=== PATIENT | female | born 1990 | race Caucasian/White ===

== ENCOUNTER 2017-10-13 06:10 | Inpatient (IN) | payer BC, SELFPAY ==
[~2017-10-13] VITALS: Ht 152.4 cm; Wt 57.6 kg
[2017-10-13] MEDS ORDERED: LR 1,000 ML IV SCH (06:33)
[2017-10-13] MEDS ORDERED: MISOPROSTOL 100 MCG TABLET (CYTOTEC) VG ONE (06:45)
[2017-10-13] MEDS ORDERED: chlorproMAZINE HCL 50 MG/ 2 ML AMP IM SCH (07:00)
[2017-10-13 08:59] LABS: BASOPHILS # (AUTO) 0.2 K/uL (0.0-0.2); BASOPHILS % (AUTO) 2.2 % (0.0-2.0); EOSINOPHILS # (AUTO) 0.8 K/uL (0.0-0.4); EOSINOPHILS % (AUTO) 11.3 % (0.0-4.0); HEMATOCRIT 34.2 % (36-48); HEMOGLOBIN 11.7 g/dL (12.0-16.0); LYMPHOCYTES # (AUTO) 2.6 K/uL (1.0-5.5); LYMPHOCYTES % (AUTO) 35.2 % (20.5-51.5); MEAN CORPUSCULAR HEMOGLOBIN 29 pg (27-31); MEAN CORPUSCULAR HGB CONC 34 % (32-36); MEAN CORPUSCULAR VOLUME 84 fL (79.0-98.0); MONOCYTES # (AUTO) 0.5 K/uL (0.0-1.0); MONOCYTES % (AUTO) 7.4 % (1.7-9.3); NEUTROPHILS # (AUTO) 3.2 K/uL (1.8-7.7); NEUTROPHILS % (AUTO) 43.9 % (40.0-70.0); PLATELET COUNT (AUTO) 300 K/uL (130-430); RED BLOOD CELL COUNT(AUTO) 4.07 MIL/uL (4.2-6.2); RED CELL DISTRIBUTION WIDTH 12.1 % (9.0-15.0); WHITE BLOOD COUNT (AUTO) 7.4 K/uL (4.8-10.8)
[2017-10-13] MEDS ORDERED: MISOPROSTOL 100 MCG TABLET (CYTOTEC) VG SCH (11:00)
[2017-10-13] MEDS: HYDROmorphone 2 MG/ML VIAL IVP PRN ×2 (15:17→19:54)
[2017-10-13] MEDS: MISOPROSTOL 100 MCG TABLET (CYTOTEC) VG SCH ×2 (16:04→20:43)
[2017-10-13] MEDS ORDERED: ONDANSETRON HCL 4 MG/2 ML VIAL ONE (20:45)
[2017-10-14] MEDS: HYDROmorphone 2 MG/ML VIAL IVP PRN ×4 (00:20→12:56)
[2017-10-14] MEDS: MISOPROSTOL 100 MCG TABLET (CYTOTEC) VG SCH ×3 (00:20→08:38)
[2017-10-14] MEDS: ONDANSETRON HCL 4 MG/2 ML VIAL IVP PRN ×2 (03:36→12:49)
[2017-10-14 08:19] LABS: HEMOGLOBIN 8.1 g/dL (12.0-16.0)
[2017-10-14] MEDS ORDERED: OXYTOCIN/0.9 % SODIUM CHLORIDE 1,000 ML IV SCH (12:30)
[2017-10-14] MEDS ORDERED: MISOPROSTOL 100 MCG TABLET (CYTOTEC) PO ONE (12:30)
[2017-10-14] MEDS ORDERED: NALOXONE HCL 0.4 MG/ML AMP (NARCAN) IVP PRN ×2 (17:30)
[2017-10-14] MEDS ORDERED: KETOROLAC TROMETHAMINE 30 MG VIAL IVP PRN (17:30)
[2017-10-14] MEDS ORDERED: NALBUPHINE HCL 10 MG/ML AMP IVP PRN (17:30)
[2017-10-14] MEDS ORDERED: DIPHENHYDRAMINE INJ 50 MG/ML VIAL IVP PRN (17:30)
[2017-10-14] MEDS ORDERED: ONDANSETRON HCL 4 MG/2 ML VIAL IVP PRN ×2 (17:30)
[2017-10-14] MEDS ORDERED: fentaNYL CITRATE/PF 100 MCG/2 ML AMP IVP PRN ×2 (17:30)
[2017-10-14] MEDS ORDERED: MORPHINE SULFATE 10MG/10ML PF AMP SP SCH (17:30)
[2017-10-14] MEDS ORDERED: KETOROLAC TROMETHAMINE 60 MG/2 ML VIAL IM PRN (17:30)
[2017-10-14 18:35] VITALS: BP_SYST 102
[2017-10-14] MEDS ORDERED: CEFAZOLIN 2 GM IVPB PREMIX 50 ML IV ONE (18:40)
[2017-10-14] MEDS ORDERED: fentaNYL CITRATE/PF 100 MCG/2 ML AMP ONE (18:40)
[2017-10-14] MEDS ORDERED: LR 1,000 ML IV.SOLN IV ONE (18:40)
[2017-10-14] MEDS ORDERED: NS IRRIG SOLN 1000 ML IR ONE (18:40)
[2017-10-14] MEDS ORDERED: MIDAZOLAM HCL 5 MG/ML VIAL (VERSED) IV ONE (18:40)
[2017-10-14] MEDS ORDERED: SEVOFLURANE 15 MIN GAS INH ONE (18:40)
[2017-10-14] MEDS ORDERED: PROPOFOL 200MG/ 20ML VIAL (DIPRIVAN) IV ONE (18:40)
== END 2017-10-14 20:35 | disposition home or self-care (01) | DRG 767 ==
LOC: SPU 06:10
PROVIDERS: ADMIT Specialist; ATTEND Specialist
PROC: 10D17Z9 Manual Extraction of Products of Conception, Retained, Via Natural or Artificial Opening (ICD-10-PCS; principal; 2017-10-14 17:45)
DX: O36.4XX0 Maternal care for intrauterine death, not applicable or unspecified (principal); Z37.1 Single stillbirth; Z3A.15 15 weeks gestation of pregnancy; O99.012 Anemia complicating pregnancy, second trimester; D64.9 Anemia, unspecified; Z98.891 History of uterine scar from previous surgery
CPT/HCPCS: 36415; 76805-TC; 85018-TC; 85025; 86592; 86886; 86900; 86901; 88305; 88309; J0690; J1170; J2250; J2405; J2590; J2704; J3010; J3230; J7120

== ENCOUNTER 2018-06-29 11:09 | Observation (INO) | payer BC ==
[~2018-06-29] VITALS: Ht 152.4 cm; Wt 61.7 kg
[2018-06-29 13:49] LABS: BILIRUBIN,URINE NEGATIVE (NEGATIVE); BLOOD, URINE NEGATIVE (NEGATIVE); CLARITY/URINE CLEAR (CLEAR); COLOR,URINE YELLOW (YELLOW); GLUCOSE,URINE NEGATIVE (NEGATIVE); KETONES,URINE NEGATIVE (NEGATIVE); LEUKOCYTE ESTERASE ,URINE TRACE (NEGATIVE); NITRITE, URINE NEGATIVE (NEGATIVE); PROTEIN URINE NEGATIVE (NEGATIVE); UROBILINOGEN,URINE 0.2 (0.2-1.0)
[2018-06-29 14:15] LABS: BACTERIA,URINE FEW /HPF (None Seen); RBC,URINE 0-3 /HPF (0-3)
[2018-06-29 14:16] LABS: MUCUS,URINE 1+ /LPF (None Seen); YEAST,URINE Few /HPF (None Seen)
== END 2018-06-29 13:01 | disposition home or self-care (01) ==
LOC: SPU 11:09
PROVIDERS: ADMIT Specialist; ATTEND Specialist
DX: O26.893 Other specified pregnancy related conditions, third trimester (principal); M54.5 Low back pain; R10.9 Unspecified abdominal pain; Z3A.30 30 weeks gestation of pregnancy
CPT/HCPCS: 81000; 87086; G0378; 81002-TC

== ENCOUNTER 2018-08-02 13:37 | Observation (INO) | payer BC ==
[~2018-08-02] VITALS: Ht 152.4 cm; Wt 61.7 kg
[2018-08-02] MEDS ORDERED: NA PHOS,M-B/NA PHOS,DI-BA 118 ML (FLEET ENEMA) RC PRN (16:00)
[2018-08-02] MEDS ORDERED: MILK OF MAGNESIA 30 ML UDC PO PRN (16:00)
[2018-08-02] MEDS: SIMETHICONE 80 MG TAB.CHEW PO PRN (16:25)
[2018-08-02] MEDS ORDERED: PROMETHAZINE INJ.Non-Formulary 25 MG/ML AMP IM PRN (17:45)
[2018-08-02] MEDS ORDERED: TERBUTALINE SULFATE 1 MG/ML VIAL SUBCUT ONE (17:45)
[2018-08-02] MEDS ORDERED: MEPERIDINE HCL/PF 50 MG/ML AMP IM PRN (17:45)
[2018-08-02] MEDS ORDERED: TERBUTALINE SULFATE 1 MG/ML VIAL ONE (17:47)
[2018-08-02] MEDS: LR 1,000 ML IV SCH (21:21)
[2018-08-03] MEDS: SIMETHICONE 80 MG TAB.CHEW PO PRN (01:33)
[2018-08-03] MEDS: LR 1,000 ML IV SCH (04:55)
[2018-08-03] MEDS ORDERED: ONDANSETRON HCL 4 MG/2 ML VIAL IVP PRN (09:00)
[2018-08-03] MEDS ORDERED: ONDANSETRON HCL 4 MG/2 ML VIAL ONE (09:06)
== END 2018-08-03 14:00 | disposition home or self-care (01) ==
LOC: SPU 13:37 → INTOOBSV 13:37 → SPU 13:49
PROVIDERS: ADMIT Specialist; ATTEND Specialist
DX: O62.9 Abnormality of forces of labor, unspecified (principal); Z3A.35 35 weeks gestation of pregnancy
CPT/HCPCS: 82962; G0378 ×2; J2175; J2405; J2550; J3105; J7120 ×2; 59899; 81002-TC

== ENCOUNTER 2018-08-07 18:08 | Inpatient (IN) | payer BC ==
[~2018-08-07] VITALS: Ht 152.4 cm; Wt 63.5 kg
[2018-08-07 18:41] LABS: BASOPHILS # (AUTO) 0.1 K/uL (0.0-0.2); BASOPHILS % (AUTO) 1.1 % (0.0-2.0); EOSINOPHILS # (AUTO) 0.2 K/uL (0.0-0.4); EOSINOPHILS % (AUTO) 2.2 % (0.0-4.0); LYMPHOCYTES # (AUTO) 2.3 K/uL (1.0-5.5); LYMPHOCYTES % (AUTO) 27.3 % (20.5-51.5); MEAN CORPUSCULAR HEMOGLOBIN 19 pg (27-31); MEAN CORPUSCULAR HGB CONC 31 % (32-36); MEAN CORPUSCULAR VOLUME 62 fL (79.0-98.0); MONOCYTES # (AUTO) 0.7 K/uL (0.0-1.0); MONOCYTES % (AUTO) 8.6 % (1.7-9.3); NEUTROPHILS # (AUTO) 5.2 K/uL (1.8-7.7); NEUTROPHILS % (AUTO) 60.8 % (40.0-70.0); PLATELET COUNT (AUTO) 460 K/uL (130-430); RED BLOOD CELL COUNT(AUTO) 3.46 MIL/uL (4.2-6.2); WHITE BLOOD COUNT (AUTO) 8.5 K/uL (4.8-10.8)
[2018-08-07 18:45] LABS: HEMATOCRIT 21.6 % (36-48); HEMOGLOBIN 6.6 g/dL (12.0-16.0)
[2018-08-07 18:55] LABS: ALBUMIN 2.5 g/dL (3.4-4.8); CALCIUM 8.9 mg/dL (8.4-11.0); CREATININE 0.62 mg/dL (0.55-1.30); POTASSIUM 3.9 mmol/L (3.5-5.1); TOTAL BILIRUBIN 0.8 mg/dL (0.0-1.0)
[2018-08-07] MEDS ORDERED: LR 1,000 ML IV ONE (20:00)
[2018-08-07] MEDS: D5LR 1,000 ML IV SCH (20:07)
[2018-08-07] MEDS: ONDANSETRON HCL 4 MG/2 ML VIAL IVP PRN (20:08)
[2018-08-08] MEDS: ONDANSETRON HCL 4 MG/2 ML VIAL IVP PRN (08:32)
[2018-08-08] MEDS ORDERED: COMMUNICATION ORDER XX ONE (10:30)
[2018-08-08] MEDS ORDERED: SOD FERRIC GLUC COMPLEX/SUC 125 MG in NS 100 ML IV ONE (11:00)
[2018-08-08] MEDS: D5LR 1,000 ML IV SCH ×2 (11:02→19:53)
[2018-08-08 15:44] LABS: TOTAL IRON BIND. CAPACITY 642 ug/dL (250-450)
[2018-08-08] MEDS ORDERED: EPOETIN ALFA 3,000 UNITS/ML VIAL SUBCUT ONE (17:00)
[2018-08-09] MEDS: TEMAZEPAM 15 MG CAPSULE PO PRN ×2 (00:25→22:25)
[2018-08-09] MEDS ORDERED: MAG-AL HYDROX/SIMETH 30 ML UDC PO PRN (04:15)
[2018-08-09] MEDS ORDERED: MILK OF MAGNESIA 30 ML UDC PO PRN (04:15)
[2018-08-09] MEDS ORDERED: COMMUNICATION ORDER XX ONE (10:45)
[2018-08-09] MEDS ORDERED: EPOETIN ALFA 3,000 UNITS/ML VIAL SUBCUT ONE (10:45)
[2018-08-09] MEDS ORDERED: SOD FERRIC GLUC COMPLEX/SUC 125 MG in NS 100 ML IV ONE (12:00)
[2018-08-09] MEDS: D5LR 1,000 ML IV SCH (16:25)
[2018-08-10] MEDS ORDERED: COMMUNICATION ORDER XX ONE (10:30)
[2018-08-10] MEDS ORDERED: EPOETIN ALFA 3,000 UNITS/ML VIAL SUBCUT ONE (13:00)
[2018-08-10] MEDS ORDERED: SOD FERRIC GLUC COMPLEX/SUC 125 MG in NS 100 ML IV SCH (13:00)
[2018-08-10 15:02] LABS: RED CELL DISTRIBUTION WIDTH 20.6 % (9.0-15.0)
== END 2018-08-10 14:00 | disposition home or self-care (01) | DRG 833 ==
LOC: SPU 18:08 → OBSVTOIN 08-08 13:00
PROVIDERS: ADMIT Specialist; ATTEND Specialist
DX: O99.013 Anemia complicating pregnancy, third trimester (principal); O99.283 Endocrine, nutritional and metabolic diseases complicating pregnancy, third trimester; E86.0 Dehydration; D64.9 Anemia, unspecified; Z3A.36 36 weeks gestation of pregnancy
CPT/HCPCS: 36415; 59025; 80053; 81002-TC; 83540-TC; 83550-TC; 85025; 86886; 86900; 86901; G0378; J0885; J2405; J2916; J7120

== ENCOUNTER 2018-08-16 14:13 | Inpatient (IN) | payer BC ==
[~2018-08-16] VITALS: Ht 152.4 cm; Wt 62.6 kg
[2018-08-16] MEDS ORDERED: TERBUTALINE SULFATE 1 MG/ML VIAL SUBCUT PRN (15:00)
[2018-08-16] MEDS ORDERED: PROMETHAZINE INJ.Non-Formulary 25 MG/ML AMP IVP ONE (15:15)
[2018-08-16] MEDS ORDERED: MEPERIDINE HCL/PF 50 MG/ML AMP IVP ONE (15:15)
[2018-08-16 15:39] LABS: BASOPHILS # (AUTO) 0.1 K/uL (0.0-0.2); BASOPHILS % (AUTO) 0.9 % (0.0-2.0); EOSINOPHILS # (AUTO) 0.1 K/uL (0.0-0.4); EOSINOPHILS % (AUTO) 1.7 % (0.0-4.0); HEMATOCRIT 22.6 % (36-48); LYMPHOCYTES # (AUTO) 1.1 K/uL (1.0-5.5); LYMPHOCYTES % (AUTO) 15.6 % (20.5-51.5); MEAN CORPUSCULAR HEMOGLOBIN 21 pg (27-31); MEAN CORPUSCULAR HGB CONC 31 % (32-36); MEAN CORPUSCULAR VOLUME 68 fL (79.0-98.0); MONOCYTES # (AUTO) 0.4 K/uL (0.0-1.0); MONOCYTES % (AUTO) 5.9 % (1.7-9.3); NEUTROPHILS # (AUTO) 5.4 K/uL (1.8-7.7); NEUTROPHILS % (AUTO) 75.9 % (40.0-70.0); PLATELET COUNT (AUTO) 125 K/uL (130-430); RED BLOOD CELL COUNT(AUTO) 3.34 MIL/uL (4.2-6.2); RED CELL DISTRIBUTION WIDTH 22.2 % (9.0-15.0); WHITE BLOOD COUNT (AUTO) 7.1 K/uL (4.8-10.8)
[2018-08-16] MEDS ORDERED: COMMUNICATION ORDER XX ONE (16:30)
[2018-08-16] MEDS ORDERED: SOD FERRIC GLUC COMPLEX/SUC 125 MG in NS 100 ML IV ONE (17:00)
[2018-08-16] MEDS ORDERED: EPOETIN ALFA 3,000 UNITS/ML VIAL SUBCUT ONE (17:00)
[2018-08-16 17:17] VITALS: BP_SYST 120
[2018-08-16] MEDS: LR 1,000 ML IV SCH (20:55)
[2018-08-16] MEDS ORDERED: TEMAZEPAM 15 MG CAPSULE PO PRN (21:00)
[2018-08-17] MEDS ORDERED: PROMETHAZINE INJ.Non-Formulary 25 MG/ML AMP IVP ONE (00:45)
[2018-08-17] MEDS ORDERED: AMPICILLIN SODIUM 2 GM in NS 100 ML IV ONE (00:45)
[2018-08-17] MEDS ORDERED: MEPERIDINE HCL/PF 50 MG/ML AMP IVP ONE (00:45)
[2018-08-17] MEDS ORDERED: AMPICILLIN SODIUM 2 GM VIAL ONE (01:00)
[2018-08-17] MEDS ORDERED: PROMETHAZINE INJ.Non-Formulary 25 MG/ML AMP ONE (01:01)
[2018-08-17] MEDS ORDERED: MEPERIDINE HCL/PF 50 MG/ML AMP ONE ×2 (01:02→14:53)
[2018-08-17] MEDS: AMPICILLIN SODIUM 1 GM in NS 50 ML IV SCH ×4 (05:05→20:54)
[2018-08-17] MEDS ORDERED: AMPICILLIN SODIUM 1 GM VIAL ONE (05:13)
[2018-08-17] MEDS ORDERED: EPOETIN ALFA 3,000 UNITS/ML VIAL SUBCUT ONE (12:15)
[2018-08-17] MEDS ORDERED: COMMUNICATION ORDER XX ONE (12:30)
[2018-08-17] MEDS ORDERED: NS IV ONE (12:45)
[2018-08-17] MEDS ORDERED: [UNRECOGNIZED DRUG - OTHER] IV ONE (12:45)
[2018-08-17] MEDS ORDERED: MEPERIDINE HCL/PF 50 MG/ML AMP IM ONE (14:45)
[2018-08-17] MEDS: LR 1,000 ML IV SCH ×2 (20:10→20:52)
[2018-08-18] MEDS: AMPICILLIN SODIUM 1 GM in NS 50 ML IV SCH (09:27)
[2018-08-18] MEDS ORDERED: COMMUNICATION ORDER XX ONE (09:45)
[2018-08-18] MEDS ORDERED: EPOETIN ALFA 3,000 UNITS/ML VIAL SUBCUT ONE (12:00)
[2018-08-18] MEDS: SOD FERRIC GLUC COMPLEX/SUC 125 MG in NS 100 ML IV SCH (13:34)
[2018-08-18] MEDS ORDERED: MEPERIDINE HCL/PF 50 MG/ML AMP IVP ONE (17:30)
[2018-08-18] MEDS ORDERED: MEPERIDINE HCL/PF 50 MG/ML AMP IVP PRN (21:45)
[2018-08-19] MEDS: LR 1,000 ML IV SCH ×3 (00:22→20:10)
[2018-08-19] MEDS ORDERED: COMMUNICATION ORDER XX ONE (09:00)
[2018-08-19] MEDS ORDERED: EPOETIN ALFA 3,000 UNITS/ML VIAL SUBCUT ONE (09:00)
[2018-08-19] MEDS: SOD FERRIC GLUC COMPLEX/SUC 125 MG in NS 100 ML IV SCH (12:25)
[2018-08-19 12:41] LABS: BASOPHILS # (AUTO) 0.1 K/uL (0.0-0.2); BASOPHILS % (AUTO) 0.9 % (0.0-2.0); EOSINOPHILS # (AUTO) 0.2 K/uL (0.0-0.4); LYMPHOCYTES # (AUTO) 1.6 K/uL (1.0-5.5); MEAN CORPUSCULAR HEMOGLOBIN 21 pg (27-31); MEAN CORPUSCULAR HGB CONC 30 % (32-36); MEAN CORPUSCULAR VOLUME 70 fL (79.0-98.0); MONOCYTES # (AUTO) 0.6 K/uL (0.0-1.0); MONOCYTES % (AUTO) 7.5 % (1.7-9.3); NEUTROPHILS # (AUTO) 5.3 K/uL (1.8-7.7); NEUTROPHILS % (AUTO) 68.6 % (40.0-70.0); PLATELET COUNT (AUTO) 75 K/uL (130-430); RED BLOOD CELL COUNT(AUTO) 3.29 MIL/uL (4.2-6.2); RED CELL DISTRIBUTION WIDTH 25.2 % (9.0-15.0); WHITE BLOOD COUNT (AUTO) 7.7 K/uL (4.8-10.8)
[2018-08-19] MEDS ORDERED: CEFAZOLIN 2 GM IVPB PREMIX 50 ML IV ONE (21:15)
[2018-08-20] MEDS: LR 1,000 ML IV SCH ×2 (04:00→20:00)
[2018-08-20 09:00] VITALS: BP_SYST 124
[2018-08-20] MEDS ORDERED: MORPHINE SULFATE 10MG/10ML PF AMP ONE (09:00)
[2018-08-20] MEDS ORDERED: ePHEDrine sulfate 50 MG/ML VIAL ONE (09:00)
[2018-08-20] MEDS ORDERED: ONDANSETRON HCL 4 MG/2 ML VIAL ONE (09:00)
[2018-08-20] MEDS ORDERED: LR 1,000 ML IV.SOLN IV ONE (09:00)
[2018-08-20] MEDS ORDERED: BUPIVACAINE /PF 0.75% 10 ML VIAL INJ ONE (09:00)
[2018-08-20] MEDS ORDERED: MIDAZOLAM HCL 5 MG/ML VIAL (VERSED) IV ONE (09:00)
[2018-08-20] MEDS ORDERED: NS 1000 ML IV.SOLN IV ONE (09:00)
[2018-08-20] MEDS ORDERED: NS IRRIG SOLN 1000 ML IR ONE (09:00)
[2018-08-20] MEDS ORDERED: OXYTOCIN 10 UNIT/ML VIAL ONE (09:00)
[2018-08-20] MEDS ORDERED: OXYTOCIN/0.9 % SODIUM CHLORIDE 1,000 ML IV ONE ×2 (09:04→09:44)
[2018-08-20] MEDS ORDERED: LR 1,000 ML IV SCH (09:05)
[2018-08-20] MEDS ORDERED: NALOXONE HCL 0.4 MG/ML AMP (NARCAN) IVP PRN (09:15)
[2018-08-20] MEDS ORDERED: SIMETHICONE 80 MG TAB.CHEW PO PRN (09:15)
[2018-08-20] MEDS ORDERED: MEASLES,MUMPS&RUBELLA VACC/PF 12500 UNIT/0.5 ML VIAL SUBQ PRN (09:15)
[2018-08-20] MEDS ORDERED: METOCLOPRAMIDE HCL 10 MG/2 ML VIAL IVP PRN (09:15)
[2018-08-20] MEDS ORDERED: ONDANSETRON HCL 4 MG/2 ML VIAL IVP PRN (09:15)
[2018-08-20] MEDS ORDERED: RHO(D) IMMUNE GLOBULIN/MALTOSE 1500 UNITS/1.3 ML (WINHRO) IM PRN (09:15)
[2018-08-20] MEDS ORDERED: BISACODYL 10 MG/SUPPOSITORY RC PRN (09:15)
[2018-08-20] MEDS ORDERED: DIPH-TET-PERTUS Vaccine 0.5 ML VIAL (ADACEL) I.M. PRN (09:15)
[2018-08-20] MEDS ORDERED: KETOROLAC TROMETHAMINE 60 MG/2 ML VIAL IM PRN (09:15)
[2018-08-20] MEDS ORDERED: ANUSOL 1 EA SUPP.RECT (PREPARATION H) RC PRN (09:15)
[2018-08-20] MEDS ORDERED: MORPHINE SULFATE 10MG/10ML PF AMP SP SCH (09:15)
[2018-08-20] MEDS ORDERED: DIPHENHYDRAMINE INJ 50 MG/ML VIAL IM PRN (09:15)
[2018-08-20] MEDS ORDERED: HYDROcodone/ACETAMIN 5-325 MG TAB (NORCO/ VICODIN) PO PRN (09:15)
[2018-08-20] MEDS ORDERED: DOCUSATE SODIUM 100 MG CAPSULE PO PRN (09:15)
[2018-08-20] MEDS ORDERED: OXYCODONE/ACETAMINOPHEN 5-325 TABLET PO PRN ×2 (09:15)
[2018-08-20] MEDS ORDERED: SENNOSIDES/DOCUSATE SODIUM 1 TAB TABLET(SENOKOT-S) PO PRN (09:15)
[2018-08-20] MEDS ORDERED: MEPERIDINE HCL/PF 50 MG/ML AMP IVP PRN (13:30)
[2018-08-20] MEDS: CEFAZOLIN 1 GM IVPB PREMIX 50 ML IV SCH ×3 (14:27→20:00)
[2018-08-20] MEDS: KETOROLAC TROMETHAMINE 30 MG VIAL IVP SCH ×2 (18:21→23:51)
[2018-08-20] MEDS ORDERED: TEMAZEPAM 15 MG CAPSULE PO PRN (21:00)
[2018-08-21] MEDS: CEFAZOLIN 1 GM IVPB PREMIX 50 ML IV SCH (02:49)
[2018-08-21] MEDS: LR 1,000 ML IV SCH (03:55)
[2018-08-21 06:30] LABS: HEMOGLOBIN 8.4 g/dL (12.0-16.0); MEAN CORPUSCULAR HEMOGLOBIN 25 pg (27-31); MEAN CORPUSCULAR HGB CONC 32 % (32-36); MEAN CORPUSCULAR VOLUME 77 fL (79.0-98.0); PLATELET COUNT (AUTO) 101 K/uL (130-430); RED BLOOD CELL COUNT(AUTO) 3.39 MIL/uL (4.2-6.2); RED CELL DISTRIBUTION WIDTH 30.9 % (9.0-15.0); WHITE BLOOD COUNT (AUTO) 10.2 K/uL (4.8-10.8)
[2018-08-21] MEDS: KETOROLAC TROMETHAMINE 30 MG VIAL IVP SCH ×2 (06:32→12:22)
[2018-08-21 10:00] LABS: BAND % (MANUAL) 2 % (0-6); BASOPHILS % (MANUAL) 0 % (0-2); EOSINOPHILS % (MANUAL) 0 % (0-7); LYMPHOCYTES % (MANUAL) 13 % (20-46); MONOCYTES % (MANUAL) 5 % (0-11)
[2018-08-21] MEDS ORDERED: IBUPROFEN 600 MG TABLET PO SCH (18:00)
== END 2018-08-21 16:15 | disposition home or self-care (01) | DRG 787 ==
LOC: SPU 14:13 → OBSVTOIN 14:13 → SPU 08-20 15:00
PROVIDERS: ADMIT Specialist; ATTEND Specialist
PROC: 30233N1 Transfusion of Nonautologous Red Blood Cells into Peripheral Vein, Percutaneous Approach (ICD-10-PCS; 2018-08-20)
PROC: 10D00Z1 Extraction of Products of Conception, Low, Open Approach (ICD-10-PCS; principal; 2018-08-20 07:45)
DX: O99.02 Anemia complicating childbirth (principal); O41.03X0 Oligohydramnios, third trimester, not applicable or unspecified; O34.211 Maternal care for low transverse scar from previous cesarean delivery; D64.9 Anemia, unspecified; Z37.0 Single live birth; Z3A.38 38 weeks gestation of pregnancy
CPT/HCPCS: 36415; 59899; 76815; 85007; 85025; 85027; 86886; 86900; 86901; 86920; 94760; J0290; J0690; J0885; J1200; J1885; J2175; J2250; J2274; J2405; J2550; J2590; J2916; J3105; J3490; J7030; J7120; P9021

== ENCOUNTER 2019-09-23 08:25 | Observation (INO) | payer BC, OTHER ==
[~2019-09-23] VITALS: Ht 152.4 cm; Wt 62.6 kg
== END 2019-09-23 21:48 | disposition home or self-care (01) ==
LOC: SPU 08:25
PROVIDERS: ADMIT Specialist; ATTEND Specialist
DX: O99.89 Other specified diseases and conditions complicating pregnancy, childbirth and the puerperium (principal); M54.9 Dorsalgia, unspecified; Z3A.29 29 weeks gestation of pregnancy
CPT/HCPCS: 59025; 81002; G0378

== ENCOUNTER 2019-10-25 17:38 | Observation (INO) | payer OTHER ==
[~2019-10-25] VITALS: Ht 152.4 cm; Wt 63.5 kg
[2019-10-25] MEDS ORDERED: LR 1,000 ML IV SCH (18:13)
[2019-10-25] MEDS ORDERED: TERBUTALINE SULFATE 1 MG/ML VIAL SUBCUT ONE (18:15)
[2019-10-25 19:10] LABS: BILIRUBIN,URINE NEGATIVE (NEGATIVE); BLOOD, URINE NEGATIVE (NEGATIVE); GLUCOSE,URINE NEGATIVE (NEGATIVE); KETONES,URINE NEGATIVE (NEGATIVE); LEUKOCYTE ESTERASE ,URINE 1+ (NEGATIVE); NITRITE, URINE NEGATIVE (NEGATIVE); PH,URINE 6.5 (5.0-8.0); PROTEIN URINE NEGATIVE (NEGATIVE); UROBILINOGEN,URINE 0.2 (0.2-1.0)
[2019-10-25 19:13] LABS: CLARITY/URINE HAZY (CLEAR); COLOR,URINE STRAW (YELLOW)
[2019-10-25 19:20] LABS: BACTERIA,URINE MODERATE /HPF (None Seen); RBC,URINE 0-3 /HPF (0-3)
[2019-10-25 19:21] LABS: MUCUS,URINE 1+ /LPF (None Seen)
== END 2019-10-25 21:43 | disposition home or self-care (01) ==
LOC: SPU 17:38
PROVIDERS: ADMIT Specialist; ATTEND Specialist
DX: O21.2 Late vomiting of pregnancy (principal); O62.9 Abnormality of forces of labor, unspecified; Z3A.34 34 weeks gestation of pregnancy
CPT/HCPCS: 76819; 81000; 87086; G0378; J7120

== ENCOUNTER 2022-04-22 19:40 | Emergency (ER) | payer MEDICAID, OTHER ==
[~2022-04-22] VITALS: Ht 152.4 cm; Wt 63.5 kg
[2022-04-22 20:02] VITALS: BP_SYST 121
--- NOTE | 2022-04-22 20:55 | NUR ---
Patient to ER bed [H2] to gown for evaluation. Side rails up. Report given to [Jacinto RHODES].
--- NOTE | 2022-04-22 21:00 | NUR ---
PT FROM HOME WITH C/O OF HYPEREMESIS X 5 DAYS AND LOWER ABD CRAMPING. PT REPORTS HAVING SEVERAL VOMITING EPISODE THROUGHOUT THE DAY AND IS UNABLE TO KEEP ANY FOOD OR LIQUID DOWN. PT STATES SHE IS 7 WEEKS WITH AT HOME TEST, [id number]. AMBULATORY, FOLLOWING COMMANDS AND A&O X4.
[2022-04-22] MEDS ORDERED: D5NS 1,000 ML IV ONE (21:15)
[2022-04-22] MEDS ORDERED: ONDANSETRON HCL 4 MG/2 ML VIAL IVP ONE (21:15)
[2022-04-22] MEDS ORDERED: NACL 0.9% 1,000 ML IV ONE (21:15)
[2022-04-22] MEDS ORDERED: DIPHENHYDRAMINE INJ 50 MG/ML VIAL IVP ONE (21:15)
[2022-04-22] MEDS ORDERED: METOCLOPRAMIDE HCL 10 MG/2 ML VIAL IVP ONE (21:15)
--- NOTE | 2022-04-22 21:30 | NUR ---
# 22 gauge angiocath placed to LAC. Use of asceptic technique. Opsite placed over site. Blood return noted. Blood for lab drawn from site. Flushed with 10 cc of normal saline. No evidence of infiltration noted. Patient tolerated well.
[2022-04-22 21:35] LABS: BASOPHILS # (AUTO) 0.1 K/uL (0.0-0.2); BASOPHILS % (AUTO) 0.8 % (0.0-2.0); EOSINOPHILS # (AUTO) 0.1 K/uL (0.0-0.4); EOSINOPHILS % (AUTO) 1.2 % (0.0-4.0); HEMATOCRIT 37.2 % (36-48); HEMOGLOBIN 12.5 g/dL (12.0-16.0); LYMPHOCYTES # (AUTO) 1.4 K/uL (1.0-5.5); LYMPHOCYTES % (AUTO) 14.5 % (20.5-51.5); MEAN CORPUSCULAR HEMOGLOBIN 28 pg (27-31); MEAN CORPUSCULAR HGB CONC 34 % (32-36); MEAN CORPUSCULAR VOLUME 83 fL (79.0-98.0); MONOCYTES # (AUTO) 0.7 K/uL (0.0-1.0); MONOCYTES % (AUTO) 7.4 % (1.7-9.3); NEUTROPHILS # (AUTO) 7.5 K/uL (1.8-7.7); NEUTROPHILS % (AUTO) 76.1 % (40.0-70.0); PLATELET COUNT (AUTO) 355 K/uL (130-430); RED BLOOD CELL COUNT(AUTO) 4.51 MIL/uL (4.2-6.2); RED CELL DISTRIBUTION WIDTH 12.9 % (9.0-15.0); WHITE BLOOD COUNT (AUTO) 9.9 K/uL (4.8-10.8)
[2022-04-22] MEDS ORDERED: ONDANSETRON HCL 4 MG/2 ML VIAL ONE (21:42)
[2022-04-22] MEDS ORDERED: DOXY1TAB3 PO (21:46)
[2022-04-22 22:23] LABS: CREATININE 0.63 mg/dL (0.55-1.30)
[2022-04-22 22:27] LABS: ALBUMIN 3.3 g/dL (3.4-4.8); TOTAL BILIRUBIN 0.3 mg/dL (0.0-1.0)
--- NOTE | 2022-04-22 22:36 | NUR ---
PT RESTING IN BED WITH EYES CLOSED, EVEN AND UNLABORED RESP NOTED, NAD. SAFETY PRECAUTIONS IN PLACE.
--- NOTE | 2022-04-23 00:20 | NUR ---
DR. MORENO WITH PATIENT AT BEDSIDE FOR MSE.
[2022-04-23 00:57] LABS: BILIRUBIN,URINE 1+ (NEGATIVE); BLOOD, URINE NEGATIVE (NEGATIVE); COLOR,URINE YELLOW (YELLOW); GLUCOSE,URINE 2+ (NEGATIVE); KETONES,URINE 3+ (NEGATIVE); LEUKOCYTE ESTERASE ,URINE NEGATIVE (NEGATIVE); NITRITE, URINE NEGATIVE (NEGATIVE); PROTEIN URINE TRACE (NEGATIVE); UROBILINOGEN,URINE 0.2 (0.2-1.0)
[2022-04-23 01:02] LABS: CLARITY/URINE SLIGHTLY CLOUDY (CLEAR)
[2022-04-23 01:07] LABS: BACTERIA,URINE FEW /HPF (None Seen); RBC,URINE 0-3 /HPF (0-3); WBC,URINE 0-3 /HPF (0-3)
[2022-04-23 01:10] LABS: MUCUS,URINE 3+ /LPF (None Seen)
[2022-04-23 01:30] VITALS: BP_SYST 121
[2022-04-23] MEDS ORDERED: NACL 0.9% 1,000 ML IV ONE (01:30)
--- NOTE | 2022-04-23 01:30 | NUR ---
Patient given written and verbal discharge instructions and verbalizes understanding. ER DR. ACEVEDO discussed with patient the results and treatment provided. Patient in stable condition. ID arm band removed. Rx of DOXYLAMINE given. Patient educated on pain management and to follow up with PMD. Pain Scale 0. Opportunity for questions provided and answered. Medication side effect fact sheet provided.
== END 2022-04-23 01:30 | disposition home or self-care (01) ==
LOC: SED 19:40
DX: O21.0 Mild hyperemesis gravidarum (principal); Z3A.09 9 weeks gestation of pregnancy; Z79.899 Other long term (current) drug therapy
CPT/HCPCS: 99284; 96374; 96361; 96375; 80053; 81000; 85025; 36415; J1200; J2765; J2405; J7030

== ENCOUNTER 2022-04-25 16:47 | Emergency (ER) | payer MEDICAID ==
[~2022-04-25 16:47] MED LIST: DOXY1TAB3 PO
[2022-04-25 17:37] VITALS: BP_SYST 134
--- NOTE | 2022-04-25 17:50 | NUR ---
Patient to ER bed 05 to gown for evaluation. Side rails up.
--- NOTE | 2022-04-25 17:53 | NUR ---
ER at bedside examining patient.
[2022-04-25] MEDS ORDERED: DIPHENHYDRAMINE INJ 50 MG/ML VIAL IVP ONE (18:00)
[2022-04-25] MEDS ORDERED: D5NS 1,000 ML IV ONE (18:00)
[2022-04-25] MEDS ORDERED: METOCLOPRAMIDE HCL 10 MG/2 ML VIAL IVP ONE (18:00)
--- NOTE | 2022-04-25 18:00 | NUR ---
PATIENT BROUGHYT IN COMPLAINING OF NAUSEA AND VOMITING X 3 DAYS WITH NO RELIEF. PATIENT TOOK ZOFRAN AND REGLAN PO TODAY WITH NO RELIEF. DENIES ANY ABDOMINAL PAIN , VAGINAL BLEEDING. SOB.
--- NOTE | 2022-04-25 18:41 | NUR ---
# 20 gauge angiocath placed to LAC Use of asceptic technique. Opsite placed over site. Blood return noted. Blood for lab drawn from site. Flushed with 10 cc of normal saline. No evidence of infiltration noted. Patient tolerated well.
[2022-04-25 18:52] LABS: BASOPHILS % (AUTO) 0.5 % (0.0-2.0); EOSINOPHILS # (AUTO) 0.1 K/uL (0.0-0.4); EOSINOPHILS % (AUTO) 1.3 % (0.0-4.0); HEMATOCRIT 34.3 % (36-48); HEMOGLOBIN 11.8 g/dL (12.0-16.0); LYMPHOCYTES # (AUTO) 1.2 K/uL (1.0-5.5); LYMPHOCYTES % (AUTO) 13.7 % (20.5-51.5); MEAN CORPUSCULAR HEMOGLOBIN 28 pg (27-31); MEAN CORPUSCULAR HGB CONC 34 % (32-36); MEAN CORPUSCULAR VOLUME 82 fL (79.0-98.0); MONOCYTES # (AUTO) 0.6 K/uL (0.0-1.0); NEUTROPHILS # (AUTO) 6.9 K/uL (1.8-7.7); NEUTROPHILS % (AUTO) 77.5 % (40.0-70.0); PLATELET COUNT (AUTO) 343 K/uL (130-430); RED BLOOD CELL COUNT(AUTO) 4.18 MIL/uL (4.2-6.2); RED CELL DISTRIBUTION WIDTH 13.1 % (9.0-15.0); WHITE BLOOD COUNT (AUTO) 8.9 K/uL (4.8-10.8)
[2022-04-25 18:55] LABS: CALCIUM 9.3 mg/dL (8.4-11.0); CREATININE 0.59 mg/dL (0.55-1.30)
[2022-04-25 19:00] LABS: ALBUMIN 3.1 g/dL (3.4-4.8); TOTAL BILIRUBIN 0.4 mg/dL (0.0-1.0)
--- NOTE | 2022-04-25 19:52 | NUR ---
RESTING COMFORTABLY. PATIENT WILL PROVIDE URINE SAMPLE AT THIS TIME
--- NOTE | 2022-04-25 20:07 | NUR ---
DR. AYALA AT BEDSIDE DISCUSSING PLAN OF CARE
[2022-04-25] MEDS ORDERED: PROM25SU57 RC (20:10)
[2022-04-25 20:23] VITALS: BP_SYST 110
--- NOTE | 2022-04-25 20:24 | NUR ---
Patient given written and verbal discharge instructions and verbalizes understanding. ER MD discussed with patient the results and treatment provided. Patient in stable condition. ID arm band removed. IV catheter removed intact and dressing applied, no active bleeding. Rx of promethazine given. Patient educated on pain management and to follow up with PMD. Pain Scale 0/10. Opportunity for questions provided and answered. Medication side effect fact sheet provided.
== END 2022-04-25 20:23 | disposition home or self-care (01) ==
LOC: SED 16:47
DX: O21.9 Vomiting of pregnancy, unspecified (principal); Z3A.10 10 weeks gestation of pregnancy; Z79.899 Other long term (current) drug therapy
CPT/HCPCS: 99284; 96374; 96361; 96375; 80053; 83735; 85025; 36415; 81002; 81025; J1200; J2765; J7030

== ENCOUNTER 2022-05-09 13:51 | Emergency (ER) | payer MEDICAID ==
[~2022-05-09] VITALS: Ht 152.4 cm; Wt 59.0 kg
[~2022-05-09 13:51] MED LIST changes: +PROM25SU57 RC
[2022-05-09 14:37] VITALS: BP_SYST 116
[2022-05-09 14:54] LABS: BILIRUBIN,URINE NEGATIVE (NEGATIVE); BLOOD, URINE 1+ (NEGATIVE); CLARITY/URINE SL CLOUDY (CLEAR); COLOR,URINE YELLOW (YELLOW); GLUCOSE,URINE NEGATIVE (NEGATIVE); KETONES,URINE TRACE (NEGATIVE); LEUKOCYTE ESTERASE ,URINE NEGATIVE (NEGATIVE); NITRITE, URINE NEGATIVE (NEGATIVE); PROTEIN URINE TRACE (NEGATIVE); UROBILINOGEN,URINE 0.2 (0.2-1.0)
[2022-05-09 15:20] LABS: BACTERIA,URINE MODERATE /HPF (None Seen); MUCUS,URINE 2+ /LPF (None Seen)
[2022-05-09 15:22] LABS: BASOPHILS % (AUTO) 0.6 % (0.0-2.0); EOSINOPHILS # (AUTO) 0.3 K/uL (0.0-0.4); EOSINOPHILS % (AUTO) 4.3 % (0.0-4.0); HEMATOCRIT 35.5 % (36-48); HEMOGLOBIN 12.1 g/dL (12.0-16.0); LYMPHOCYTES # (AUTO) 1.5 K/uL (1.0-5.5); LYMPHOCYTES % (AUTO) 19.5 % (20.5-51.5); MEAN CORPUSCULAR HEMOGLOBIN 28 pg (27-31); MEAN CORPUSCULAR HGB CONC 34 % (32-36); MEAN CORPUSCULAR VOLUME 81 fL (79.0-98.0); MONOCYTES # (AUTO) 0.7 K/uL (0.0-1.0); MONOCYTES % (AUTO) 8.6 % (1.7-9.3); NEUTROPHILS # (AUTO) 5.2 K/uL (1.8-7.7); PLATELET COUNT (AUTO) 349 K/uL (130-430); RED BLOOD CELL COUNT(AUTO) 4.41 MIL/uL (4.2-6.2); RED CELL DISTRIBUTION WIDTH 12.7 % (9.0-15.0); WHITE BLOOD COUNT (AUTO) 7.8 K/uL (4.8-10.8)
--- NOTE | 2022-05-09 15:29 | NUR ---
Pt brought by self,A&Ox4, pt presents to ER with brown discharge, skin pink and warm, cap refill <3, VSS, will cont to monitor
--- NOTE | 2022-05-09 16:15 | NUR ---
Dr Garcia evaluating patient in the triage room
--- NOTE | 2022-05-09 17:10 | NUR ---
Pt sitting in a chair, no s/s of distress, denies bleeding.
[2022-05-09] MEDS ORDERED: cefTRIAXone 1 GM VIAL IM ONE (19:15)
--- NOTE | 2022-05-09 19:30 | NUR ---
Pt eloped from ER at this time
== END 2022-05-09 19:30 | disposition left against medical advice (07) ==
LOC: SED 13:51
DX: O00.01 Abdominal pregnancy with intrauterine pregnancy (principal); O34.11 Maternal care for benign tumor of corpus uteri, first trimester; O23.41 Unspecified infection of urinary tract in pregnancy, first trimester; Z3A.10 10 weeks gestation of pregnancy; Z79.899 Other long term (current) drug therapy
CPT/HCPCS: 36415; 76801; 76817; 81000; 81025; 84702; 85025; 87086; 99284

== ENCOUNTER 2022-09-01 11:22 | Observation (INO) | payer BC, MEDICAID | END 2022-09-01 14:20 | disposition home or self-care (01) | LOC: SPU 11:22 | PROVIDERS: ADMIT Specialist; ATTEND Specialist | DX: O42.912 Preterm premature rupture of membranes, unspecified as to length of time between rupture and onset of labor, second trimester (principal); Z3A.26 26 weeks gestation of pregnancy | CPT/HCPCS: 76815; G0378 ==

== ENCOUNTER 2022-09-14 15:42 | Observation (INO) | payer BC, MEDICAID ==
[~2022-09-14] VITALS: Ht 152.4 cm; Wt 63.5 kg
== END 2022-09-14 17:37 | disposition home or self-care (01) ==
LOC: SPU 15:42
PROVIDERS: ADMIT Specialist; ATTEND Specialist
DX: O36.8130 Decreased fetal movements, third trimester, not applicable or unspecified (principal); Z3A.28 28 weeks gestation of pregnancy
CPT/HCPCS: G0378

== ENCOUNTER 2022-10-03 14:38 | Observation (INO) | payer BC, MEDICAID ==
[~2022-10-03] VITALS: Ht 152.4 cm; Wt 67.1 kg
== END 2022-10-03 16:38 | disposition home or self-care (01) ==
LOC: SPU 14:38
PROVIDERS: ADMIT Specialist; ATTEND Specialist
DX: O62.9 Abnormality of forces of labor, unspecified (principal); Z3A.39 39 weeks gestation of pregnancy
CPT/HCPCS: 59025; 81002; 76815; G0379; G0378

== ENCOUNTER 2022-10-21 12:20 | Observation (INO) | payer BC, MEDICAID ==
[~2022-10-21] VITALS: Ht 152.4 cm; Wt 65.8 kg
[2022-10-21] MEDS ORDERED: PANTOPRAZOLE SODIUM 40 MG TAB PO ONE ×2 (13:30→21:15)
[2022-10-21] MEDS ORDERED: D5/0.45 NS 1,000 ML IV ONE ×2 (13:30→13:45)
[2022-10-21 13:52] LABS: BASOPHILS % (AUTO) 0.1 % (0.0-2.0); HEMATOCRIT 33.2 % (36-48); HEMOGLOBIN 10.9 g/dL (12.0-16.0); LYMPHOCYTES # (AUTO) 1.1 K/uL (1.0-5.5); LYMPHOCYTES % (AUTO) 10.3 % (20.5-51.5); MEAN CORPUSCULAR HEMOGLOBIN 28 pg (27-31); MEAN CORPUSCULAR HGB CONC 33 % (32-36); MEAN CORPUSCULAR VOLUME 85 fL (79.0-98.0); MONOCYTES # (AUTO) 0.9 K/uL (0.0-1.0); MONOCYTES % (AUTO) 8.4 % (1.7-9.3); NEUTROPHILS # (AUTO) 8.7 K/uL (1.8-7.7); NEUTROPHILS % (AUTO) 81.2 % (40.0-70.0); PLATELET COUNT (AUTO) 215 K/uL (130-430); RED BLOOD CELL COUNT(AUTO) 3.91 MIL/uL (4.2-6.2); RED CELL DISTRIBUTION WIDTH 17.3 % (9.0-15.0); WHITE BLOOD COUNT (AUTO) 10.8 K/uL (4.8-10.8)
[2022-10-21 14:10] LABS: ALBUMIN 2.6 g/dL (3.4-4.8); CALCIUM 8.8 mg/dL (8.4-11.0); CREATININE 0.56 mg/dL (0.55-1.30); TOTAL BILIRUBIN 0.4 mg/dL (0.0-1.0)
[2022-10-21] MEDS: D5/0.45 NS 1,000 ML IV SCH ×3 (14:28→20:00)
[2022-10-21] MEDS ORDERED: ONDANSETRON HCL 4 MG/2 ML VIAL IVP PRN (15:45)
[2022-10-21] MEDS ORDERED: SUCRALFATE 1 GM TABLET PO ONE (16:00)
[2022-10-21] MEDS: PANTOPRAZOLE SODIUM 40 MG TAB PO SCH (21:24)
[2022-10-21] MEDS: SUCRALFATE 1 GM TABLET PO SCH (21:24)
[2022-10-22] MEDS: D5/0.45 NS 1,000 ML IV SCH (05:27)
[2022-10-22] MEDS: SUCRALFATE 1 GM TABLET PO SCH (08:52)
[2022-10-22] MEDS: PANTOPRAZOLE SODIUM 40 MG TAB PO SCH (08:52)
== END 2022-10-22 16:28 | disposition home or self-care (01) ==
LOC: SPU 12:20
PROVIDERS: ADMIT Specialist; ATTEND Specialist
DX: O26.893 Other specified pregnancy related conditions, third trimester (principal); R10.13 Epigastric pain; R51.9 Headache, unspecified; O21.2 Late vomiting of pregnancy; O36.8130 Decreased fetal movements, third trimester, not applicable or unspecified; Z3A.34 34 weeks gestation of pregnancy
CPT/HCPCS: 96361 ×2; 96374; 80053; 85025; 36415; J2405; G0378 ×2; G0379

== ENCOUNTER 2022-10-25 17:07 | Observation (INO) | payer BC, MEDICAID ==
[~2022-10-25] VITALS: Ht 152.4 cm; Wt 65.8 kg
== END 2022-10-25 17:40 | disposition home or self-care (01) ==
LOC: SPU 17:07
PROVIDERS: ADMIT Specialist; ATTEND Specialist
DX: O62.9 Abnormality of forces of labor, unspecified (principal); Z3A.34 34 weeks gestation of pregnancy
CPT/HCPCS: G0379; G0378; 81002

== ENCOUNTER 2022-11-08 15:57 | Observation (INO) | payer BC, MEDICAID ==
[~2022-11-08] VITALS: Ht 152.4 cm; Wt 67.6 kg
== END 2022-11-08 18:17 | disposition home or self-care (01) ==
LOC: SPU 15:57
PROVIDERS: ADMIT Specialist; ATTEND Specialist
DX: O62.9 Abnormality of forces of labor, unspecified (principal); Z3A.36 36 weeks gestation of pregnancy
CPT/HCPCS: 76815; G0379; G0378

== ENCOUNTER 2022-11-13 18:46 | Inpatient (IN) | payer BC, MEDICAID ==
[~2022-11-13] VITALS: Ht 152.4 cm; Wt 65.8 kg
[2022-11-13] MEDS ORDERED: CEFAZOLIN 2 GM IVPB PREMIX 50 ML IV ONE (21:00)
[2022-11-13 21:35] LABS: BILIRUBIN,URINE 1+ (NEGATIVE); BLOOD, URINE NEGATIVE (NEGATIVE); CLARITY/URINE CLEAR (CLEAR); COLOR,URINE YELLOW (YELLOW); GLUCOSE,URINE NEGATIVE (NEGATIVE); KETONES,URINE 1+ (NEGATIVE); LEUKOCYTE ESTERASE ,URINE NEGATIVE (NEGATIVE); NITRITE, URINE NEGATIVE (NEGATIVE); PROTEIN URINE TRACE (NEGATIVE); UROBILINOGEN,URINE 0.2 (0.2-1.0)
[2022-11-13 21:39] LABS: BASOPHILS % (AUTO) 0.5 % (0.0-2.0); EOSINOPHILS # (AUTO) 0.2 K/uL (0.0-0.4); EOSINOPHILS % (AUTO) 2.6 % (0.0-4.0); HEMATOCRIT 35.7 % (36-48); HEMOGLOBIN 11.9 g/dL (12.0-16.0); LYMPHOCYTES # (AUTO) 1.9 K/uL (1.0-5.5); LYMPHOCYTES % (AUTO) 25.2 % (20.5-51.5); MEAN CORPUSCULAR HEMOGLOBIN 28 pg (27-31); MEAN CORPUSCULAR HGB CONC 33 % (32-36); MEAN CORPUSCULAR VOLUME 84 fL (79.0-98.0); MONOCYTES # (AUTO) 0.8 K/uL (0.0-1.0); MONOCYTES % (AUTO) 9.9 % (1.7-9.3); NEUTROPHILS # (AUTO) 4.7 K/uL (1.8-7.7); NEUTROPHILS % (AUTO) 61.8 % (40.0-70.0); PLATELET COUNT (AUTO) 246 K/uL (130-430); RED BLOOD CELL COUNT(AUTO) 4.24 MIL/uL (4.2-6.2); RED CELL DISTRIBUTION WIDTH 15.3 % (9.0-15.0); WHITE BLOOD COUNT (AUTO) 7.7 K/uL (4.8-10.8)
[2022-11-13 21:49] LABS: BACTERIA,URINE RARE /HPF (None Seen)
[2022-11-14] MEDS: LR 1,000 ML IV SCH ×2 (05:34→14:00)
[2022-11-14 09:08] VITALS: BP_SYST 124; PULSE 75; RESP 18; TEMP 97.7
[2022-11-14] MEDS ORDERED: NALOXONE HCL 0.4 MG/ML AMP (NARCAN) IVP PRN ×2 (13:30→19:15)
[2022-11-14] MEDS ORDERED: MORPHINE SULFATE 10 MG/ML VIAL IM ONE (13:30)
[2022-11-14] MEDS ORDERED: METHYLERGONOVINE MALEATE 0.2 MG/ML AMP ONE (17:27)
[2022-11-14] MEDS ORDERED: KETOROLAC TROMETHAMINE 60 MG/2 ML VIAL IM PRN (18:45)
[2022-11-14] MEDS ORDERED: DIPHENHYDRAMINE INJ 50 MG/ML VIAL IM PRN (18:45)
[2022-11-14] MEDS ORDERED: TEMAZEPAM 15 MG CAPSULE PO PRN (19:15)
[2022-11-14] MEDS ORDERED: ANUSOL 1 EA SUPP.RECT (PREPARATION H) RC PRN (19:15)
[2022-11-14] MEDS ORDERED: OXYCODONE/ACETAMINOPHEN *10*mg/325 mg TABLET PO PRN (19:15)
[2022-11-14] MEDS ORDERED: DIPHTH,PERTUSS(ACELL),TET VAC 0.5 ML VIAL (Tdap) I.M. PRN (19:15)
[2022-11-14] MEDS ORDERED: BISACODYL 10 MG/SUPPOSITORY RC PRN (19:15)
[2022-11-14] MEDS ORDERED: RHO(D) IMMUNE GLOBULIN/MALTOSE 1500 UNITS/1.3 ML (WINHRO) IM PRN (19:15)
[2022-11-14] MEDS ORDERED: MEASLES,MUMPS&RUBELLA VACC/PF 12500 UNIT/0.5 ML VIAL SUBQ PRN (19:15)
[2022-11-14] MEDS ORDERED: LANOLIN 7 GM OINT. TP PRN (19:15)
[2022-11-14] MEDS ORDERED: OXYCODONE/ACETAMINOPHEN 5-325 TABLET PO PRN (19:15)
[2022-11-14] MEDS ORDERED: HYDROcodone/ACETAMIN 5-325 MG TAB (NORCO/ VICODIN) PO PRN (19:15)
[2022-11-14] MEDS ORDERED: LR 1,000 ML IV SCH (19:15)
[2022-11-14] MEDS ORDERED: NS IRRIG SOLN 1000 ML IR ONE (19:20)
[2022-11-14] MEDS ORDERED: ePHEDrine sulfate 50 MG/ML VIAL ONE (19:20)
[2022-11-14] MEDS ORDERED: MEPERIDINE 100 MG INJ. 100 MG/ML VIAL ONE (19:20)
[2022-11-14] MEDS ORDERED: METOCLOPRAMIDE HCL 10 MG/2 ML VIAL ONE (19:20)
[2022-11-14] MEDS ORDERED: OXYTOCIN 10 UNIT/ML VIAL ONE (19:20)
[2022-11-14] MEDS ORDERED: DEXAMETHASONE SOD PHOSPHATE 4 MG/ML VIAL ONE (19:20)
[2022-11-14] MEDS ORDERED: LR 1,000 ML IV.SOLN IV ONE (19:20)
[2022-11-14] MEDS ORDERED: fentaNYL CITRATE 250 MCG/5 ML AMP ONE (19:20)
[2022-11-14 19:46] VITALS: BP_SYST 140
[2022-11-14] MEDS ORDERED: SENNOSIDES/DOCUSATE SODIUM 1 TAB TABLET(SENOKOT-S) PO SCH (21:00)
[2022-11-14] MEDS: ONDANSETRON HCL 4 MG/2 ML VIAL IVP PRN (21:07)
[2022-11-14] MEDS: HYDROmorphone 1 MG/ML INJ. CARTRIDGE IVP PRN (22:22)
[2022-11-15] MEDS: CEFAZOLIN 1 GM IVPB PREMIX 50 ML IV SCH ×3 (00:22→11:53)
[2022-11-15] MEDS: OXYTOCIN/0.9 % SODIUM CHLORIDE 1,000 ML IV SCH ×2 (01:05→11:52)
[2022-11-15] MEDS: HYDROmorphone 1 MG/ML INJ. CARTRIDGE IVP PRN (04:30)
[2022-11-15] MEDS: KETOROLAC TROMETHAMINE 30 MG VIAL IVP SCH ×3 (05:59→18:16)
[2022-11-15 06:32] LABS: BASOPHILS # (AUTO) 0.1 K/uL (0.0-0.2); BASOPHILS % (AUTO) 0.5 % (0.0-2.0); HEMATOCRIT 35.2 % (36-48); HEMOGLOBIN 11.6 g/dL (12.0-16.0); LYMPHOCYTES % (AUTO) 8.3 % (20.5-51.5); MEAN CORPUSCULAR HEMOGLOBIN 28 pg (27-31); MEAN CORPUSCULAR HGB CONC 33 % (32-36); MEAN CORPUSCULAR VOLUME 84 fL (79.0-98.0); MONOCYTES # (AUTO) 0.9 K/uL (0.0-1.0); MONOCYTES % (AUTO) 7.7 % (1.7-9.3); NEUTROPHILS # (AUTO) 9.6 K/uL (1.8-7.7); NEUTROPHILS % (AUTO) 83.5 % (40.0-70.0); PLATELET COUNT (AUTO) 264 K/uL (130-430); RED BLOOD CELL COUNT(AUTO) 4.17 MIL/uL (4.2-6.2); RED CELL DISTRIBUTION WIDTH 14.6 % (9.0-15.0); WHITE BLOOD COUNT (AUTO) 11.5 K/uL (4.8-10.8)
[2022-11-15] MEDS: ONDANSETRON HCL 4 MG/2 ML VIAL IVP PRN (08:54)
[2022-11-15] MEDS: SIMETHICONE 80 MG TAB.CHEW PO PRN (11:52)
[2022-11-15] MEDS: DOCUSATE SODIUM 100 MG CAPSULE PO SCH (11:52)
[2022-11-16] MEDS: IBUPROFEN 600 MG TABLET PO SCH ×3 (00:04→12:16)
[2022-11-16] MEDS: DOCUSATE SODIUM 100 MG CAPSULE PO SCH (12:15)
[2022-11-16] MEDS: SIMETHICONE 80 MG TAB.CHEW PO PRN (12:16)
[2022-11-16 22:05] LABS: FTA-Ab (T PALLIDUM) Non Reactive (Non Reactive)
== END 2022-11-16 13:01 | disposition home or self-care (01) | DRG 785 ==
LOC: OBSVTOIN 18:46 → SPU 18:46
PROVIDERS: ADMIT Specialist; ATTEND Specialist
PROC: 0UB70ZZ Excision of Bilateral Fallopian Tubes, Open Approach (ICD-10-PCS; 2022-11-14)
PROC: 10D00Z1 Extraction of Products of Conception, Low, Open Approach (ICD-10-PCS; principal; 2022-11-14 18:06)
DX: O34.211 Maternal care for low transverse scar from previous cesarean delivery (principal); Z37.0 Single live birth; Z3A.37 37 weeks gestation of pregnancy; Z30.2 Encounter for sterilization
CPT/HCPCS: 36415; 81000; 81002; 85025; 86592; 86780; 86886; 86900; 86901; 88302; 94760; J0690; J1100; J1170; J1885; J2175; J2210; J2270; J2405; J2590; J2765; J3010; J7120